=== PATIENT | female | born 1970 | race Caucasian/White ===

== ENCOUNTER 2018-12-10 10:15 | Emergency (ER) | payer SELFPAY ==
[~2018-12-10] VITALS: Ht 167.6 cm; Wt 60.0 kg
[2018-12-10] MEDS ORDERED: LORAZEPAM 2MG/ML CPJ IV ONE (11:15)
[2018-12-10] MEDS ORDERED: SODIUM CHLORIDE 0.9% 1,000 ML IV ONE (11:22)
[2018-12-10 11:55] LABS: OPIATES URINE SCREEN NEGATIVE (NEGATIVE)
[2018-12-10 11:56] LABS: *AMPHETAMINES SCREEN URINE NEGATIVE (NEGATIVE); *BARBITURATES SCREEN URINE NEGATIVE (NEGATIVE); *COCAINE SCREEN URINE NEGATIVE (NEGATIVE); CANNABINOID URINE SCREEN NEGATIVE (NEGATIVE); PHENCYCLIDINE URINE SCREEN NEGATIVE (NEGATIVE)
[2018-12-10 11:57] LABS: METHADONE URINE SCREEN NEGATIVE (NEGATIVE)
[2018-12-10 12:08] LABS: BASOPHILS % 2.3 % (0.0-2.0); EOSINOPHILS % 1.4 % (0.0-5.0); HEMATOCRIT. 36.2 % (36.0-48.0); HEMOGLOBIN. 12.2 g/dL (12.0-16.0); LYMPHOCYTES % 52.2 % (20.0-50.0); MEAN CORPUSCULAR HEMOGLOBIN 31.7 pg (28.0-32.0); MEAN CORPUSCULAR VOLUME 94.2 fL (81.0-99.0); MEAN PLATELET VOLUME 7.4 fl (7.4-10.4); MONOCYTES % 11.3 % (2.0-8.0); NEUTROPHILS % 32.8 % (40.0-76.0); PLATELET 315 x1000/uL (130-400); RED BLOOD CELL COUNT 3.84 mill/uL (4.2-5.4); RED CELL DISTRIBUTION WIDTH 18.2 % (11.6-14.6)
[2018-12-10 12:11] LABS: CHLORIDE 108 mEq/L (98-107)
[2018-12-10 12:15] LABS: *BENZODIAZEPINES SCREEN URINE PRESUMTIVE POSITIVE (NEGATIVE)
[2018-12-10 13:09] LABS: ETHANOL BLOOD 308 mg/dL
[2018-12-10 14:15] VITALS: BP 105/70
== END 2018-12-10 18:30 | disposition home or self-care (01) ==
LOC: ER 10:35
DX: F10.129 Alcohol abuse with intoxication, unspecified (principal); Y90.8 Blood alcohol level of 240 mg/100 ml or more
CPT/HCPCS: 36415; 80053; 80305; 80307; 80320; 80329; 85025; 96361; 96374; 99283; J2060; J7030; G0480